=== PATIENT | male | born 1990 | race Hispanic/Latino ===

== ENCOUNTER 2018-05-11 14:04 | Emergency (ER) | payer MEDICAID, OTHER ==
[2018-05-11] MEDS ORDERED: LIDOCAINE HCL 1% 20 ML VIAL ONE (14:12)
== END 2018-05-11 14:37 | disposition home or self-care (01) ==
LOC: EDH 14:04
DX: S61.412A Laceration without foreign body of left hand, initial encounter (principal); W20.8XXA Other cause of strike by thrown, projected or falling object, initial encounter; Y93.89 Activity, other specified; Y92.89 Other specified places as the place of occurrence of the external cause; Y99.8 Other external cause status
CPT/HCPCS: 12041